=== PATIENT | female | born 2005 | race African-American/Black ===

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

== ENCOUNTER 2025-02-26 13:43 | Outpatient (CLI) | payer BC, SELFPAY ==
--- NOTE | ~2025-02-26 | XR_ITS ---
EXAMINATION: [id number], 02/26/2025 13:53 CDT HISTORY: pain x 1 week, popped out of place last week after fall COMPARISON: No comparisons available. Findings: No acute fracture or malalignment. No significant degenerative changes. Soft tissues unremarkable. Impression: No acute fracture or malalignment. Reviewed, dictated and finalized at location P. Impression: No acute fracture or malalignment.
== END 2025-02-26 13:44 | disposition home or self-care (01) ==
LOC: GOSHIMG 13:47
PROVIDERS: PCP Nurse Practitioner; Visit Provider Nurse Practitioner
DX: M25.562 Pain in left knee (principal); S83.105A Unspecified dislocation of left knee, initial encounter; W19.XXXA Unspecified fall, initial encounter
CPT/HCPCS: 73560